=== PATIENT | male | born 1955 | race Caucasian/White ===

== ENCOUNTER → 2024-12-23 07:11 | Outpatient (REF) | payer MEDICARE, BC, SELFPAY | LOC: RCS 07:11 | PROVIDERS: ATTENDING PHYSICIAN Family Medicine | DX: R00.2 Palpitations (principal); I49.9 Cardiac arrhythmia, unspecified; I49.8 Other specified cardiac arrhythmias | CPT/HCPCS: 93306 ==

== ENCOUNTER → 2024-12-24 09:14 | Outpatient (REF) | payer MEDICARE, BC, SELFPAY | LOC: RCS 09:14 | PROVIDERS: ATTENDING PHYSICIAN Family Medicine | DX: R00.2 Palpitations (principal); I49.9 Cardiac arrhythmia, unspecified; I49.8 Other specified cardiac arrhythmias | CPT/HCPCS: 93225; 93226 ==

== ENCOUNTER → 2025-04-29 08:14 | Outpatient (REF) | payer MEDICARE, BC, SELFPAY | LOC: MRI 08:14 | PROVIDERS: ATTENDING PHYSICIAN Internal Medicine Cardiovascular Disease; FAMILY PHYSICIAN Family Medicine | DX: I49.8 Other specified cardiac arrhythmias (principal) | CPT/HCPCS: 75561; 75565; A9585 ==